=== PATIENT | male | born 1980 | race Caucasian/White ===

== ENCOUNTER 2016-11-16 20:18 | Emergency (ER) | payer OTHER ==
[~2016-11-16] VITALS: Ht 188 cm; Wt 90.9 kg
[2016-11-16 20:24] VITALS: BP 147/87; PULSE 74; RESP 16; O2SAT 99
[2016-11-16 20:43] VITALS: BP 150/90; PULSE 65; RESP 17; O2SAT 97
[2016-11-16 21:10] LABS: BASOPHILS % (AUTO) 0.5 % (0-3); EOSINOPHILS % (AUTO) 1.5 % (0-5); MONOCYTES % (AUTO) 10.3 % (4-12); Mean Corpuscular Hemoglobin 30.5 pg (27.0-35.0); NEUTROPHILS % (AUTO) 61.6 % (40-74); Platelet Count 234 bil/L (150-400)
--- NOTE | 2016-11-16 21:10 | DRSVH ---
PROCEDURE: X-RAY CHEST ONE VIEW, PORTABLE ([id number]) INDICATIONS: CP TECHNIQUE: One view of the chest was acquired. COMPARISON: None. FINDINGS: Surgical changes and devices: None. Lungs and pleura: No pleural effusions or pneumothorax. Lungs are clear. Mediastinum: Mediastinal contours appear normal. Heart size is normal. Bones and chest wall: No suspicious bony lesions. Overlying soft tissues appear unremarkable. IMPRESSION: No acute cardiopulmonary findings. Dictated by: Selina Souza M.D. on 11/16/2016 at 21:07 Approved by: Selina Souza M.D. on 11/16/2016 at 21:08
--- NOTE | 2016-11-16 21:22 | ED.REPORT ---
HPI-Chest Pain Under 40 Date of Service Nov 16, 2016 ED Provider: Vlad Forbes DO Pt is an otherwise healthy 36 year old male who presents to the ED complaining of intermittent tight chest pain (2x) onset yesterday while he was driving. He c /o associated shaking. He states that he had a blood pressure over 170 yesterday. The pt reports that the pain is exacerbated with movement, and the episodes usually last 30 minutes. The pt denies a history of cardiac disease and HTN. The pt admits to smoking, and he reports that his grandparents had TIA , one of which dies in his 40s. He reports that he has experienced these symptoms 4x previously 2 years ago. The pt was seen at another facility yesterday and given GI cocktail. Nursing Notes Stated Complaint: CHEST PAIN Chief Complaint: Chest Pain Nursing Notes Reviewed: Yes Allergies: Uncoded Allergies: RISPERDONE (Allergy, Unknown, 11/16/16) General Time Seen by MD: 21:22 Chief Complaint Chest pain Hx Obtained From: Patient Arrived By: Walk-in Sudden in Onset?: No Onset Occurred: Yesterday Symptom Duration: 16 - 30 minutes Location: : Substernal Quality: Painful Severity: Current: Moderate Severity: Maximum: Moderate Recent Healthcare: No recent doctor visit, No recent hospitalization Similar Sx Previous: Yes Risk Factors )( CAD Risk Stratification SmokingNo Amphetamine, No Cocaine, No Diabetes mellitus, No Family history, No Hyperlipidemia, No Hypertension, No Known CAD Risk factors reviewed TAD Risk Stratification No 1st degree relative, No Aortic valve disease, No Coarctation of aorta, No Mel-Danlos syndrome, No High intensity wt lifting, No Hypertension, No Inflamm dx / vasculitis, No Loeys-Keyla syndrome, No Marfan's syndrome, No Other genetic predisp, No Pre-exist aortic aneurysm, No , No Turners Syndrome Risk factors reviewed, No risk factors HEART Score HEART for MACE: Low index of susp (0), Normal ECG (0), Age under 45 (0), 1-2 CAD risk factors (1) HEART for MACE Score: 0-3 (low risk 0.9%-1.7%) PERC Rule PERC Result: Pretest under 15%, All PERC criteria "No", PERC rule satisfied Past Medical History Past Medical History Denies - healthy Past Surgical History Denies Smoking History Current Every Day Smoker Social History Denies Review of Systems Respiratory: Denies: Non-productive cough, Shortness of breath Cardiovascular: Reports: Chest pain Neurologic: Reports: Shaking Complete sys rev & neg: except as marked. Physical Exam Initial Vital Signs Vital Signs (First) Date Time Temp Pulse Resp B/P Pulse Ox O2 Delivery O2 Flow Rate FiO2 11/16/16 20:24 36.6 74 16 147/87 99 Room Air Initial VS: Reviewed Head / Eyes: Atraumatic, Normocephalic, PERRL ENT: Mucous membranes moist, Conjunctiva normal, No scleral icterus Neck: Supple, Full range of motion Abdomen / GI: Soft, Non-tender Extremities: Vascular intact, Neuro intact Skin: Warm, Dry, No cyanosis Neurologic: Alert, Oriented, Nonfocal Psychiatric: Mood/affect normal, Behavior normal General/Constitutional: Awake, Alert, Cooperative, Not toxic appearing Respiratory / Chest: Atraumatic, Breath sounds NL, Breath sounds = bilat Tender chest wall Cardiovascular: Heart rate NL, Regular rhythm, Heart sounds NL Interpretation & Diagnostics Lab Results Interpretation Result Diagram: 11/16/16205411/16/162054 Test 11/16/16 20:55 11/16/16 21:29 11/17/16 00:10 White Blood Count 7.3th/mm3 (3.8-10.1) Red Blood Count 4.89mil/mm3 (4.40-5.80) Hemoglobin 14.9g/dL (13.8-17.2) Hematocrit 44.5% (41.0-50.0) Mean Corpuscular Volume 91.0fL (81-100) Mean Corpuscular Hemoglobin 30.5pg (27.0-35.0) Mean Corpuscular Hemoglobin Concent 33.5% (32.0-37.0) Red Cell Distribution Width 13.2% (12.3-15.4) Platelet Count 234bil/L (150-400) Neutrophils (%) (Auto) 61.6% (40-74) Lymphocytes (%) (Auto) 26.0% (14-46) Monocytes (%) (Auto) 10.3% (4-12) Eosinophils (%) (Auto) 1.5% (0-5) Basophils (%) (Auto) 0.5% (0-3) D-Dimer < 0.50mg/L FEU (<0.50) Sodium Level 139mEq/L (134-144) Potassium Level 4.1mEq/L (3.5-5.2) Chloride Level 99mEq/L (97-108) Carbon Dioxide Level 24mmol/L (18-29) Blood Urea Nitrogen 20mg/dL (6-20) Creatinine 0.80mg/dL (0.76-1.27) Estimat Glomerular Filtration Rate 117mL/min (>59) Glucose Level 98mg/dL (60-99) Calcium Level 9.5mg/dL (8.5-10.1) Magnesium Level 2.0mg/dL (1.6-2.6) Total Bilirubin 0.3mg/dL (0.0-1.2) Aspartate Amino Transf (AST/SGOT) 28U/L (0-50) Alanine Aminotransferase (ALT/SGPT) 20U/L (0-44) Alkaline Phosphatase 56U/L (25-150) Total Protein 7.1g/dL (6.4-8.4) Albumin 4.2g/dL (3.4-5.0) Hold Urine Received (Received) Troponin T 0.010ug/L (0.0-0.011) ECG Interpretation ECG Interpretation: Sinus rhythm with a rate of [address] Probably left ventricular hypertrophy ST elev, probable normal early repol pattern Time: 20:36 Interpreted by: ED physician ECG Interpretation: Sinus rhythm with a rate or [address] elev, probably normal early repol pattern Time: 01:28 Interpreted by: ED physician X-Ray Chest Interpretation Chest Xray Interpretation: IMPRESSION: No acute cardiopulmonary findings. Dictated by: Selina Souza M.D. on 11/16/2016 at 21:07 View: Portable, 1 view Interpretation / Wet Read by: Interpret - Radiologist Re-Eval/Medical Decision Med Decision/Clinical Course Atypical chest pain. No classic anginal symptoms. No ripping or tearing pain consistent with dissection. Diagnostics reassuring. EKG is normal. Serial troponins negative. Heart scores low risk. Pulmonary M I rule out criteria met. Negative d-dimer. Normal chest x-ray. Myocardial infarction, acute coronary syndrome, pulmonary emboli and aortic dissection all highly unlikely. I think the pain is more musculoskeletal anyways because he has a tender chest wall. Either way he will be discharged home with very close outpatient follow- up. IV Toradol helped the pain significantly. Source of Hx: Old records Re-Evaluation/Progress : Time of Eval: 01:09 Re-Evaluation/Progress Note: Pt rechecked. Informed pt of plan for discharge. Pt understands and agrees with plan for discharge. F/U instructions and RTER warnings given. All questions addressed. Counseled Regarding: Diagnosis, Lab results, Need for follow-up, When/why to return to ED Discharge & Departure Primary Impression: Chest pain Chest pain type: unspecified Qualified Code: R07.9 - Chest pain, unspecified Disposition: Home Discharge Condition All VS Reviewed: Yes Condition: Stable Patient Instructions: Chest Pain (ED) Additional Instructions: Your EKGs and heart enzymes were reassuring. No signs of heart injury. Your blood clot blood test was negative. Your chest x-ray was normal. The cause of your symptoms is uncertain but there does not appear to be any signs of a heart attack. I would like you to call your doctor in the morning for follow-up. For the anxiety symptoms she may take 1 Ativan every [address] or drink alcohol or take any other sedatives while taking the Ativan. Call your doctor first thing in the morning. Return if any problems or any new or worrisome symptoms. Referrals: DESIRAE PAYTON MD (PCP) [facility] Scribe Attestation Portions of this note were transcribed by Andie Elizalde. I, Dr. Forbes personally performed the history, physical exam and medical decision-making; I reviewed and confirmed the accuracy of the information in the transcribed note. Signed by: Jose J Rosas, 11/17/16 and 02:30. copies to: DESIRAE PAYTON MD; [facility] Vlad Forbes DO Nov 16, 2016 21:22 Andie Tate Nov 17, 2016 00:05
[2016-11-16 22:10] LABS: TROPONIN T 0.01 ug/L (0.0-0.011)
[2016-11-16 23:35] VITALS: BP 146/67; PULSE 56; RESP 14; O2SAT 96
[2016-11-17] MEDS ORDERED: _LORazepam 1 mg Tablet PO PRN
[2016-11-17 02:09] VITALS: BP 146/67; PULSE 78; RESP 14; O2SAT 96
== END 2016-11-17 02:14 | disposition home or self-care (01) ==
LOC: SED 20:18
DX: R07.89 Other chest pain (principal); F17.200 Nicotine dependence, unspecified, uncomplicated
CPT/HCPCS: 36415; 71010; 80053; 81002; 83735; 84484; 85025; 85378; 93005; 96374; 99285; J1885

== ENCOUNTER 2016-11-19 17:39 | Emergency (ER) | payer OTHER ==
[~2016-11-19] VITALS: Ht 188 cm; Wt 90.9 kg
[2016-11-19 17:42] VITALS: BP 138/107; PULSE 62; RESP 22; O2SAT 98
--- NOTE | 2016-11-19 20:02 | ED.REPORT ---
HPI-Psychiatric Illness Date of Service Nov 19, 2016 ED Provider: Pino Tobin MD Patient is a 36 year old male with a hx of schizoaffective disorder and bipolar with episodes of psychosis who presents to the ED with family due to issues managing his mental health and family tensions. Per family, he has had several outbursts in the last few days and they are concerned that he is becoming increasingly agitated and may become violent. They are worried he is off of his medications and not sleeping. He states that he is frustrated because he has had chest pain "probably due to anxiety" and is frustrated that he has not received the care and familial support he thinks he needs. He was seen in the department 3 days ago for chest pain. He also thinks his family is sabotaging him to keep him "from going on a date with someone". He denies active suicidal or homicidal ideations, or any other symptoms. He endorses that he has been using THC and that it has been making his symptoms worse. His mental health medications were recently changed. He takes olanzapine daily. Patient has a hx of mental health hospitalizations. He reports he has a counselor and a psychiatrist. He has a urology appointment Monday, cardiology appointment Monday, and an appointment in [place] Monday for a hernia. Mother: Rekha Father: Jase Patient has given permission to share information with family. Nursing Notes Stated Complaint: MENTAL HEALTH ASSESSMENT Chief Complaint: Psychiatric Complaint Nursing Notes Reviewed: Yes Allergies: Uncoded Allergies: RISPERDONE (Allergy, Unknown, 11/16/16) General Time Seen by MD: 20:01 Chief Complaint Other (Increased agitation ) Hx Obtained From: Patient, Other family... Arrived By: Walk-in Onset Occurred: 3 days ago Symptom Duration: Intermittent Severity: Current: No pain currently Severity: Maximum: No pain Associated with: Reports: Anxiety Exacerbated by: Drug abuse, Medication change, Resident home stress Related History: Reports: Bipolar disorder, Schizophrenia Similar Sx Previous: Yes Risk-Psychiatric Illness Suicide Risk Stratification Suicide Risk Factors - Adult: : Prior psych admission: Substance abuse RF Statements: Risk factors reviewed Past Medical History Past Medical History Notes: Patient condones sharing information with family. Past Medical History Schizoaffective disorder Bipolar disorder Past Surgical History Denies Smoking History Current Every Day Smoker Social History Denies meth and cocaine use. Drug Use: THC Other Social History: Good social support Ambulatory Status Independent Review of Systems Psychiatric: Reports: Agitation, Anxiety, Denies: Homicidal ideation, Suicidal ideation Complete sys rev & neg: except as marked. Physical Exam Nursing note and vitals reviewed. Constitutional: Well-developed, well-nourished. Not diaphoretic. Head: Normocephalic and atraumatic. Mouth/Throat: Oropharynx is clear and moist. No oropharyngeal exudate. Eyes: EOM are normal. Pupils are equal, round, and reactive to light. Neck: Supple, no tracheal deviation. Cardiovascular: Normal rate, regular rhythm. Equal and intact distal pulses throughout. Pulmonary/Chest: Effort normal and breath sounds normal. No respiratory distress. Abdominal: Soft. No distension. There is no tenderness, rebound, or guarding. Musculoskeletal: Range of motion grossly intact, moving all extremities. Neurological: AOx3. Grossly nonfocal exam. Skin: Warm and dry, no rashes or pallor appreciated. Psychiatric: flight of ideas, pressured speech, impulsive, paranoid, denies active SI or HI, occasionally appears to be responding to internal stimuli not physically present in room. Initial Vital Signs Vital Signs (First) Date Time Temp Pulse Resp B/P Pulse Ox O2 Delivery O2 Flow Rate FiO2 11/19/16 17:42 36.7 62 22 138/107 98 Room Air Interpretation & Diagnostics Lab Results Interpretation Result Diagram: 11/19/16 22511/19/16 2250 Test 11/19/16 22:50 11/19/16 23:30 White Blood Count 8.3th/mm3 (3.8-10.1) Red Blood Count 4.85mil/mm3 (4.40-5.80) Hemoglobin 15.1g/dL (13.8-17.2) Hematocrit 43.8% (41.0-50.0) Mean Corpuscular Volume 90.3fL (81-100) Mean Corpuscular Hemoglobin 31.1pg (27.0-35.0) Mean Corpuscular Hemoglobin Concent 34.5% (32.0-37.0) Red Cell Distribution Width 12.9% (12.3-15.4) Platelet Count 223bil/L (150-400) Neutrophils (%) (Auto) 54.3% (40-74) Lymphocytes (%) (Auto) 31.7% (14-46) Monocytes (%) (Auto) 11.2% (4-12) Eosinophils (%) (Auto) 2.1% (0-5) Basophils (%) (Auto) 0.6% (0-3) Sodium Level 139mEq/L (134-144) Potassium Level 3.8mEq/L (3.5-5.2) Chloride Level 100mEq/L (97-108) Carbon Dioxide Level 24mmol/L (18-29) Blood Urea Nitrogen 15mg/dL (6-20) Creatinine 0.85mg/dL (0.76-1.27) Estimat Glomerular Filtration Rate 109mL/min (>59) Glucose Level 117mg/dL (60-99) Calcium Level 9.2mg/dL (8.5-10.1) Total Bilirubin 0.4mg/dL (0.0-1.2) Aspartate Amino Transf (AST/SGOT) 25U/L (0-50) Alanine Aminotransferase (ALT/SGPT) 18U/L (0-44) Alkaline Phosphatase 51U/L (25-150) Total Protein 7.0g/dL (6.4-8.4) Albumin 4.1g/dL (3.4-5.0) Thyroid Stimulating Hormone (TSH) 2.140uIU/mL (0.450-4.500) Hold Mendoza Top Tube Received (Received) Alcohols < 10mg/dL (0-10) Hold Urine Received (Received) Lab Results Interpretation: Urine tox positive for benzodiazepines and THC Re-Eval/Medical Decision Med Decision/Clinical Course 36-year-old male presenting to the ED for evaluation of flight of ideas, pressured speech, impulsivity, and not acting right according to his family. They feel that they may be in imminent danger from him. At this time, his symptoms do seem to be most consistent with acute psychosis. I am concerned that he may be arrested himself or others despite the fact that he is not endorsing active suicidal or homicidal ideations at this time. I discussed the patient with DM, who will evaluate the patient for psychiatric admission. Discharge & Departure Discharge Condition All VS Reviewed: Yes Condition: Stable Referrals: [facility] (PCP) Scribe Attestation Portions of this note were transcribed by Daniel Tran. I, Dr. Tobin personally performed the history, physical exam and medical decision-making; I reviewed and confirmed the accuracy of the information in the transcribed note. Signed by: Daniel Tran 11/19/16, 2351 Pino Tobin MD Nov 19, 2016 20:02 DANIEL TRAN Nov 19, 2016 22:36
[2016-11-19 21:28] VITALS: BP 172/84; PULSE 53; RESP 20; O2SAT 98
[2016-11-19 22:58] LABS: BASOPHILS % (AUTO) 0.6 % (0-3); EOSINOPHILS % (AUTO) 2.1 % (0-5); MONOCYTES % (AUTO) 11.2 % (4-12); Mean Corpuscular Hemoglobin 31.1 pg (27.0-35.0); Mean Corpuscular Volume 90.3 fL (81-100); NEUTROPHILS % (AUTO) 54.3 % (40-74); Platelet Count 223 bil/L (150-400)
[2016-11-20] MEDS ORDERED: Ketamine 100 mg/mL 5 mL Inj IM ONE (02:15)
[2016-11-20] MEDS ORDERED: Haloperidol 5 mg/mL Inj IM ONE (02:25)
[2016-11-20 03:19] VITALS: BP 126/62; PULSE 52; RESP 14; O2SAT 98
[2016-11-20 04:00] VITALS: BP 119/53; PULSE 65; RESP 16; O2SAT 98
[2016-11-20 06:18] VITALS: BP 99/61; PULSE 52; RESP 12; O2SAT 95
[2016-11-20] MEDS ORDERED: Haloperidol 5 mg/mL Inj IM PRN (08:40)
[2016-11-20 08:43] VITALS: BP 99/61; PULSE 52; RESP 12; O2SAT 95
== END 2016-11-20 08:44 | disposition other institution (70) ==
LOC: SED 17:39
DX: R45.1 Restlessness and agitation (principal); F25.0 Schizoaffective disorder, bipolar type; F17.200 Nicotine dependence, unspecified, uncomplicated
CPT/HCPCS: 36415; 80053; 81002; 84443; 85025; 96372; 99285; G0480; J1200; J1630; J2060

== ENCOUNTER 2017-01-16 12:43 | Emergency (ER) | payer OTHER ==
[2017-01-16 12:49] VITALS: BP 168/110; PULSE 97; RESP 16; O2SAT 98
--- NOTE | 2017-01-16 13:13 | ED.REPORT ---
HPI-General Illness Date of Service Jan 16, 2017 ED Provider: Emery Hathaway MD The pt is a 36 y/o male w/ a hx of HTN, bipolar disorder, and schizophrenia presenting to the ED complaining of abdominal pain. The abdominal pain has been gradually getting worse for the last month, 9-10/10 severity, and he describes the pain being bad enough he feels like he could as well as occasionally smelling something . The pain is diffuse normally but when he eats it is more localized to his LLQ. The pt also has had constant episodes of diarrhea since yesterday. He has never had symptoms like this before. Denies blood in the stool, vomiting, suicidal ideations, and homicidal ideations, changes in weight, swelling in groin or voices in his head. He describes cleaning up a septic tanks overflow a month ago and living in the same housing which was when his symptoms began. Nursing Notes Stated Complaint: ABDOMINAL PAIN Chief Complaint: Male Abdominal Pain Nursing Notes Reviewed: Yes ([employer], [employer] not renconciled) Allergies: Coded Allergies: risperidone (Verified Allergy, Unknown, 01/16/17) General Time Seen by MD: 13:10 Chief Complaint Abdominal pain Hx Obtained From: Patient Arrived By: Walk-in Sudden in Onset?: Yes Onset Occurred: More than a week ago... (1 month) Symptom Duration: Since onset Recent Healthcare: No recent hospitalization, Recent doctor visit Similar Sx Previous: No Past Medical History Past Medical History Notes: Patient condones sharing information with family. Past Medical History Schizoaffective disorder Bipolar disorder HTN Past Surgical History Denies Smoking History Current Every Day Smoker Social History Denies meth and cocaine use. Drug Use: THC Other Social History: Good social support Ambulatory Status Independent Review of Systems The pt reports smelling "something "; Denies changes in weight, swelling in groin, or voices in his head; Full Review of Systems GI: Reports: Abdominal pain, Diarrhea, Denies: Bloody/tarry stool, Vomiting Psychiatric: Denies: Homicidal ideation, Suicidal ideation Complete sys rev & neg: except as marked. Physical Exam Vital Signs Vital Signs Date Time Temp Pulse Resp B/P Pulse Ox O2 Delivery O2 Flow Rate FiO2 01/16/17 14:43 88 16 150/74 99 01/16/17 12:49 37 97 16 168/110 98 Room Air Initial VS: Reviewed, Vital signs normal General/Constitutional: Awake, Alert, Not toxic appearing Head / Eyes: Atraumatic, Normocephalic, No photophobia ENT: Atraumatic, Airway patent, Mucous membranes moist Neck: Atraumatic, Supple, Full range of motion Respiratory / Chest: Atraumatic, Breath sounds NL, Breath sounds = bilat Cardiovascular: Heart rate NL, Regular rhythm, Heart sounds NL Abdomen: Atraumatic, Soft, Non-tender No palpable inguinal hernia Upper Extremities Upper Extremity / MS: Atraumatic, Full range of motion, No deformity Lower Extremity / Pelvis / MS: Atraumatic, Full range of motion, No deformity Skin: Atraumatic, Color NL, No rash, Warm, Dry, Intact Neurologic: Speech NL, No motor deficits Psychiatric: Not suicidal, Not homicidal Disorganized but able to give a reasonable history Reasonable insight and judgement Struggles slightly w/ reality Appears to have intact decisional ability Does not appear gravely disabled Cooperative Interpretation & Diagnostics Lab Results Interpretation Result Diagram: 01/16/17 1405 01/16/17 1405 Test 01/16/17 13:15 01/16/17 14:05 Hold Urine Received (Received) White Blood Count 7.5th/mm3 (3.8-10.1) Red Blood Count 4.96mil/mm3 (4.40-5.80) Hemoglobin 15.6g/dL (13.8-17.2) Hematocrit 45.4% (41.0-50.0) Mean Corpuscular Volume 91.5fL (81-100) Mean Corpuscular Hemoglobin 31.5pg (27.0-35.0) Mean Corpuscular Hemoglobin Concent 34.4% (32.0-37.0) Red Cell Distribution Width 14.2% (12.3-15.4) Platelet Count 250bil/L (150-400) Neutrophils (%) (Auto) 74.1% (40-74) Lymphocytes (%) (Auto) 15.0% (14-46) Monocytes (%) (Auto) 9.0% (4-12) Eosinophils (%) (Auto) 1.1% (0-5) Basophils (%) (Auto) 0.5% (0-3) Sodium Level 141mEq/L (134-144) Potassium Level 4.2mEq/L (3.5-5.2) Chloride Level 100mEq/L (97-108) Carbon Dioxide Level 26mmol/L (18-29) Blood Urea Nitrogen 11mg/dL (6-20) Creatinine 0.69mg/dL (0.76-1.27) Estimat Glomerular Filtration Rate 139mL/min (>59) Glucose Level 104mg/dL (60-99) Calcium Level 9.5mg/dL (8.5-10.1) Total Bilirubin 0.3mg/dL (0.0-1.2) Aspartate Amino Transf (AST/SGOT) 40U/L (0-50) Alanine Aminotransferase (ALT/SGPT) 17U/L (0-44) Alkaline Phosphatase 62U/L (25-150) Total Protein 7.7g/dL (6.4-8.4) Albumin 4.7g/dL (3.4-5.0) Alcohols < 10mg/dL (0-10) Lab Results Interpretation: CBC jayashree CMP normal stool PCR pending Re-Eval/Medical Decision Med Decision/Clinical Course This is a 36-year-old male with schizophrenia somewhat disorganized, but not suicidal, not homicidal and seems to have adequate decisional capacity presents complaining that he feels terrible and is having dysentery. Reports living in a trailer and having some sort of septic cleanup recently and is worried about contamination, now is developed abdominal discomfort and diarrhea. Nonbloody, he is not sure if he may have had a fever, symptoms then worsened over the past 24 hours. He, that he "thought I was going to " The patient has normal vitals nontoxic, but again is mildly disorganized. His abdomen is soft and nontender. Blood work is normal. Chemistry abuse involved to touch base indicates the patient started receiving [facility] health earlier today, he has been compliant in doing stable although he has chronic mild disorganization from schizophrenia. While in the department he did have fairly severe diarrhea, no stool PCR as panel pending. I am not finding indication for CT imaging, but given the complication of the patient living by himself, being somewhat disorganized, think is reasonable as were waiting for the stool PCR results to determine what type of supportive or medical therapy might finally be indicated. He is being hydrated. He received a dose of Toradol initially with some in improvement, still is having some abdominal cramping since some low-dose Dilaudid is being administered orally wait for the PCR results. He is being turned over Dr. Miner pendingER results. Source of Hx: Old records Time of Eval: 15:03 Re-Evaluation/Progress Note: POLYMERIZATION ENGINEER spoke to the pt. Differential Diagnosis: Positive: Abdominal pain, Negative: Acute coronary syndrome, Allergies, Neutropenia, Pneumonia, Seizure disorder Counseled Regarding: Diagnosis, Lab results, Need for follow-up, When/why to return to ED Discharge & Departure Shift Change Sign-Out Patient Care Transferred: Yes Discussed Complaint(s): Yes Laboratory Evaluation: Ordered, not yet done Primary Impression: Diarrhea Additional Impression: Schizophrenia Disposition: Home Discharge Condition All VS Reviewed: Yes Condition: Stable Referrals: [facility] Care Transferred to: Dr. Miner Care Transferred at: 15:00 Scribe Attestation Portions of this note were transcribed by Elmer Kessler. I, Dr. Hathaway personally performed the history, physical exam and medical decision-making; I reviewed and confirmed the accuracy of the information in the transcribed note. copies to: [facility] Emery Hathwaay MD Jan 16, 2017 13:13 Elmer Kessler Jan 16, 2017 13:37
[2017-01-16] MEDS ORDERED: 0.9% Sodium Chloride 1,000 ML IV ONE (13:35)
[2017-01-16 14:23] LABS: BASOPHILS % (AUTO) 0.5 % (0-3); EOSINOPHILS % (AUTO) 1.1 % (0-5); Mean Corpuscular Hemoglobin 31.5 pg (27.0-35.0); Mean Corpuscular Volume 91.5 fL (81-100); NEUTROPHILS % (AUTO) 74.1 % (40-74); Platelet Count 250 bil/L (150-400)
[2017-01-16 14:43] VITALS: BP 150/74; PULSE 88; RESP 16; O2SAT 99
[2017-01-16] MEDS ORDERED: HYDROmorphone 0.5 mg/0.5 mL iSecure Syringe IVPUSH PRN (15:15)
--- NOTE | 2017-01-16 20:58 | PCM.EDPN ---
ED Note Date of Service Jan 16, 2017 I assumed care of this patient from Dr. Hathaway at 3 PM. I have reviewed his documentation detail and spoke with the patient in detail and examined his abdomen which is entirely benign. I spoke with his sister at some length whose name is Sherley. She describes great frustration from multiple family members that he is not receiving a mental health care that he needs. She says that he has never quite bad enough to require hospitalization. The patient himself says that he used to have schizophrenia but it got better. He is currently on an LR. I do not see anything today that makes me believe that he is in violation of his less restrictive order. While frustrated by this reality , Sherley is understanding and not accusatory in any way of us. Regarding his chief complaint of abdominal pain and poisoning, I think this has been sufficiently excluded with tests done here today. He remains very fixated on his abdomen recommended that I would prescribe an antidiarrheal medicine and antispasmodic pain medication. I prescribed loperamide and hyoscyamine. Assessment: Abdominal pain and diarrhea; schizophrenia suboptimally treated. Plan: Hyoscyamine and loperamide and fluids and follow up with primary care in the coming days. Regarding mental health, she will have contacted from thePACT team tomorrow at the hotel where his sister will bring him tonight in [place]. Shelton Miner MD Jan 16, 2017 20:58
[2017-01-16] MEDS ORDERED: HYOS-8 PO (21:02)
[2017-01-16 21:23] VITALS: BP 152/91; PULSE 96; RESP 18; O2SAT 96
== END 2017-01-16 21:06 | disposition home or self-care (01) ==
LOC: SED 12:43
DX: R19.7 Diarrhea, unspecified (principal); F20.9 Schizophrenia, unspecified; F31.9 Bipolar disorder, unspecified; I10 Essential (primary) hypertension; F17.200 Nicotine dependence, unspecified, uncomplicated; Z88.8 Allergy status to other drugs, medicaments and biological substances
CPT/HCPCS: 36415; 80053; 81002; 85025; 87507; 90791; 96361; 96374; 99285; G0480; J1885; J7030